=== PATIENT | female | born 1975 | race Caucasian/White ===

== ENCOUNTER 2019-08-17 12:59 | Outpatient (CLI) | payer OTHER | END 2019-08-17 23:59 | disposition home or self-care (01) | LOC: RAD 12:59 | PROVIDERS: ATTEND Obstetrics & Gynecology | DX: R10.2 Pelvic and perineal pain (principal); Z53.09 Procedure and treatment not carried out because of other contraindication ==

== ENCOUNTER 2019-08-25 08:11 | Outpatient (CLI) | payer OTHER ==
[2019-08-25 08:50] LABS: BASOPHILS # (AUTO) 0.1 X10'3 (0-0.2); BASOPHILS % (AUTO) 0.9 % (0-1); EOSINOPHILS # (AUTO) 0.1 X10'3 (0-0.9); EOSINOPHILS % (AUTO) 1.5 % (0-6); HEMATOCRIT 37.4 % (35.0-45.0); HEMOGLOBIN 12.6 g/dl (12.0-16.0); LYMPHOCYTES # (AUTO) 1.1 X10'3 (1.1-4.8); LYMPHOCYTES % (AUTO) 19.6 % (21-51); MEAN CORPUSCULAR HEMOGLOBIN 29.9 PG (27.0-31.0); MEAN CORPUSCULAR HGB CONC 33.7 g/dL (33.0-36.5); MEAN CORPUSCULAR VOLUME 88.8 FL (78-98); MEAN PLATELET VOLUME 7.2 FL (7.4-10.4); MONOCYTES # (AUTO) 0.4 X10'3 (0-0.9); MONOCYTES % (AUTO) 6.4 % (2-12); NEUTROPHILS % (AUTO) 71.6 % (42-75); PLATELET COUNT 362 X10'3 (140-440); RED BLOOD COUNT 4.21 X10'6 (4.20-5.60); RED CELL DISTRIBUTION WIDTH 14.3 % (11.5-14.5); WHITE BLOOD COUNT 5.6 X10'3 (4.5-11.0)
[2019-08-25 09:24] LABS: ANION GAP 9 (8-16); BILIRUBIN,TOTAL 0.4 MG/DL (0.1-1.0); BLOOD UREA NITROGEN 14 MG/DL (7-18); BUN/CREATININE RATIO 21.2 (6.6-38.0); CALCIUM 9.1 MG/DL (8.5-10.1); CHLORIDE 102 MMOL/L (99-107); CREATININE 0.66 MG/DL (0.40-0.90); GLUCOSE 89 MG/DL (70-104); POTASSIUM 3.9 MMOL/L (3.5-5.1); SODIUM 139 MMOL/L (135-145); TOTAL CARBON DIOXIDE 28.5 MMOL/L (24-32); eGFR > 90 ML/MIN
[2019-08-25 09:25] LABS: ALANINE AMINOTRANSFERASE 18 U/L (12-78); ALBUMIN 3.8 G/DL (3.4-5.0); ALBUMIN/GLOBULIN RATIO 0.9 (1.1-1.5); ALKALINE PHOSPHATASE 111 IU/L (46-116); ASPARTATE AMINO TRANSFERASE 13 U/L (10-37); TOTAL PROTEIN 8.1 G/DL (6.4-8.2)
[2019-08-26 08:10] LABS: INSULIN 14.7 uIU/mL (2.6-24.9)
[2019-08-27 05:18] LABS: FSH, SERUM 4.8 mIU/mL (.); LUTEINIZING HORMONE 10.8 mIU/mL (.); PROLACTIN 10.5 ng/mL (4.8-23.3)
[2019-08-27 19:12] LABS: TESTOSTERONE, FREE, DIRECT 1.3 pg/mL (0.0-4.2)
== END 2019-08-25 23:59 | disposition home or self-care (01) ==
LOC: LAB 08:11
PROVIDERS: ATTEND Obstetrics & Gynecology
DX: N92.1 Excessive and frequent menstruation with irregular cycle (principal); Z87.891 Personal history of nicotine dependence
CPT/HCPCS: 36415; 80053; 83001; 83002; 83525; 84146; 84402; 84439; 84443; 85025

== ENCOUNTER 2021-06-01 11:42 | Emergency (ER) | payer BC, OTHER ==
[~2021-06-01] VITALS: Ht 160 cm; Wt 81.8 kg
[2021-06-01 11:49] VITALS: BP 126/81
[2021-06-01 12:24] LABS: BASOPHILS % (AUTO) 0.7 % (0-1); EOSINOPHILS # (AUTO) 0.1 X10'3 (0-0.9); EOSINOPHILS % (AUTO) 2.3 % (0-6); HEMOGLOBIN 12.4 g/dl (12.0-16.0); LYMPHOCYTES # (AUTO) 1.4 X10'3 (1.1-4.8); LYMPHOCYTES % (AUTO) 22.2 % (21-51); MEAN CORPUSCULAR HEMOGLOBIN 28.2 PG (27.0-31.0); MEAN CORPUSCULAR HGB CONC 32.5 g/dL (33.0-36.5); MEAN CORPUSCULAR VOLUME 86.8 FL (78-98); MEAN PLATELET VOLUME 7.9 FL (7.4-10.4); MONOCYTES # (AUTO) 0.4 X10'3 (0-0.9); MONOCYTES % (AUTO) 6.1 % (2-12); NEUTROPHILS # (AUTO) 4.4 X10'3 (1.8-7.7); NEUTROPHILS % (AUTO) 68.7 % (42-75); PLATELET COUNT 346 X10'3 (140-440); RED BLOOD COUNT 4.38 X10'6 (4.20-5.60); RED CELL DISTRIBUTION WIDTH 15.5 % (11.5-14.5); WHITE BLOOD COUNT 6.4 X10'3 (4.5-11.0)
[2021-06-01 12:27] LABS: CLARITY,URINE SLIGHTLY CLOUDY (Clear); COLOR,URINE STRAW (Yellow); GLUCOSE, URINE NEGATIVE (Neg); KETONES,URINE 15 mg/dl (Neg); LEUKOCYTE ESTERASE ,URINE MODERATE (Neg); NITRITES, URINE NEGATIVE (Neg); OCCULT BLOOD,URINE MODERATE (Neg); PROTEIN,URINE NEGATIVE (Neg); UROBILINOGEN,URINE 0.2 E.U/dL (0.2-1.0)
[2021-06-01 12:29] LABS: URINE HCG NEGATIVE (NEG)
[2021-06-01 12:33] LABS: ALANINE AMINOTRANSFERASE 22 U/L (12-78); ALBUMIN/GLOBULIN RATIO 0.9 (1.1-1.5); ALKALINE PHOSPHATASE 98 IU/L (46-116); ANION GAP 10 (8-16); ASPARTATE AMINO TRANSFERASE 14 U/L (10-37); BILIRUBIN,TOTAL 0.4 MG/DL (0.1-1.0); BLOOD UREA NITROGEN 9 MG/DL (7-18); BUN/CREATININE RATIO 12.5 (6.6-38.0); CHLORIDE 102 MMOL/L (99-107); CREATININE 0.72 MG/DL (0.40-0.90); GLUCOSE 96 MG/DL (70-104); LIPASE 63 U/L (73-393); POTASSIUM 4.3 MMOL/L (3.5-5.1); SODIUM 138 MMOL/L (135-145); TOTAL CARBON DIOXIDE 26.1 MMOL/L (24-32); TOTAL PROTEIN 8.3 G/DL (6.4-8.2); eGFR 88 ML/MIN
[2021-06-01 12:49] LABS: UA COLLECTION TYPE CLN CATCH MIDSTREAM
[2021-06-01 13:02] LABS: SQUAMOUS EPITHELIAL CELL,UR MANY /LPF (FEW)
[2021-06-01 13:03] LABS: CELLULAR CAST 0-4 /LPF (NEGATIVE)
[2021-06-01 13:04] LABS: BACTERIA,URINE 1+ /HPF (Neg)
[2021-06-01 13:05] LABS: WBC CLUMPS,URINE FEW /HPF (NEGATIVE)
[2021-06-01] MEDS ORDERED: ondansetron/PF 4mg/2ml inj IV ONE (13:15)
[2021-06-01] MEDS ORDERED: normal saline 1000ML IV soln IVB ONE (13:15)
[2021-06-01] MEDS ORDERED: OMEP20CA15 PO (13:23)
[2021-06-01] MEDS ORDERED: FAMO20TA44 PO (13:23)
[2021-06-01] MEDS ORDERED: SUCR1TAB34 PO (13:23)
[2021-06-01] MEDS ORDERED: ONDA4TAB6 PO (13:23)
[2021-06-01] MEDS: diatr meglu/diatrizoate 30ml oral sol.-(3 dose) bottle PO SCH ×3 (13:46→15:17)
[2021-06-01 13:51] LABS: CHOL/HDL RATIO 4.4 (0.00-4.99); CHOLESTEROL 141 MG/DL (0-200); HDL CHOLESTEROL 32 MG/DL (35-60); LDL CHOLESTEROL 94 MG/DL (50-100); TRIGLYCERIDES 73 MG/DL (20-135)
[2021-06-01] MEDS ORDERED: iohexol 300mg/ml 100ml inj. ONE (15:35)
== END 2021-06-01 16:25 | disposition home or self-care (01) ==
LOC: ER 11:43
DX: R10.84 Generalized abdominal pain (principal); R11.0 Nausea; Z79.899 Other long term (current) drug therapy
CPT/HCPCS: 36415; 74177; 80053; 80061; 81001; 81025; 83605; 83690; 85025; 96360; 99285; J7030; Q9963; Q9967